=== PATIENT | female | born 1945 ===

== ENCOUNTER 2017-10-07 10:18 | Day surgery (SDC) | payer MEDICARE ==
[2017-10-04 16:05] VITALS: BMI 23.9
[2017-10-07] MEDS ORDERED: Midazolam 2 MG/2 ML VIAL ONE ×3 (12:02→16:42)
[2017-10-07] MEDS ORDERED: Verapamil 2 ML ONE ×2 (12:02→16:41)
[2017-10-07] MEDS ORDERED: Lidocaine 2% Inj (20ml) ONE ×2 (12:02→17:12)
[2017-10-07] MEDS ORDERED: Iodixanol 320 MG/ML 200 ML BOTTLE IV ONE (12:03)
[2017-10-07] MEDS ORDERED: Nitroglycerin 50mg in D5W 50 MG/250 ML BOTTLE IV ONE (12:03)
[2017-10-07 12:20] VITALS: RESP 18; O2SAT 100
[2017-10-07 12:33] LABS: BASO # 0.02 K/mm3 (0.0-2.0); BASO % 0.3 % (0.0-3.0); EOS # 0.3 (0.0-0.7); EOS % 3.4 % (1.5-5.0); GRAN # 4.78 (1.4-6.5); HEMOGLOBIN 14.7 g/dL (12.0-16.0); LYMPH # 2.2 (1.2-3.4); LYMPH % 28.3 % (22.0-35.0); MEAN CELL VOLUME 89.3 fl (80.0-105.0); MEAN CORPUSCULAR HEMOGLOBIN 30.2 pg (25.0-35.0); MEAN CORPUSCULAR HGB CONC 33.8 g/dl (31.0-37.0); MEAN PLATELET VOLUME 9.5 fl (7.0-11.0); MONO # 0.4 (0.1-0.6); RBC 4.87 10^6/uL (3.5-6.1); RED CELL DISTRIBUTION WIDTH 12.8 % (11.5-14.5); WHITE BLOOD COUNT 7.6 10^3/ul (4.5-11.0)
[2017-10-07 12:41] LABS: BLOOD UREA NITROGEN 16 mg/dL (7-21); CALCIUM 9.7 mg/dL (8.4-10.5); GFR AFRICAN-AMERICAN > 60; GFR NON-AFRICAN AMERICAN > 60; HDL CHOLESTEROL 41 mg/dL (29-60)
[2017-10-07 12:47] LABS: INR 1.03 (0.93-1.08); PARTIAL THROMBOPLASTIN TIME 29.4 Seconds (25.1-36.5); PROTHROMBIN TIME 11.8 SECONDS (9.4-12.5)
[2017-10-07 12:52] LABS: LDL CHOLESTEROL 97 mg/dL (0-129)
--- NOTE | 2017-10-07 15:12 | CARD ---
APPROVED REPORT EKG Measurement Heart [id number] MA 160P-4 [id number] <Conclusion> Electronic ventricular pacemaker: 100 % VДмитрий Matson
[2017-10-07] MEDS ORDERED: Adenosine 90 mg/30mL IV ONE (15:13)
[2017-10-07] MEDS ORDERED: Iohexol 350mgl/ml 50 ML ONE (17:29)
[2017-10-07] MEDS ORDERED: Iohexol 350 MG/100 ML VIAL ONE (17:47)
[2017-10-07] MEDS ORDERED: Bacitracin 500 Units/gm Oint Foilpak UD TOP ONE (17:52)
[2017-10-07 20:26] VITALS: TEMP 98.5
[2017-10-07 20:28] VITALS: BP 133/91; PULSE 92
--- NOTE | 2017-10-07 23:24 | CARDCATH ---
PROCEDURE DATE: 10/07/2017 INDICATIONS: Roxy Morgan is a 71-year-old female who was admitted to [facility] last month with an episode of chest discomfort, anxiety and was noted to be in high-grade AV block. Patient was subsequently transferred to [place] and underwent successful pacemaker replacement. A week prior to that presentation, she had come in with an episode of atypical chest pain, had mildly positive troponin and was subsequently discharged home with plan for outpatient evaluation. Soon discharge, she had episodes of recurrent chest pain and shortness of breath. Therefore, was brought to the wastewater analyst lab analyst for further evaluation and treatment. PROCEDURE PERFORMED: Left heart catheterization with selective left and right coronary angiogram via left radial approach. FFR of proximal diagonal at 0.91, FFR of mid LAD at 0.68 secondary to mid LAD myocardial bridge. TECHNIQUES OF PROCEDURE: After obtaining informed consent, patient was brought to the cardiac catheterization suite in post-absorptive and non-sedated state. Patient was prepped and draped in the usual sterile fashion. A 2% lidocaine was used for infiltration of anesthesia. Using modified Seldinger technique, a 6-[place] sheath was introduced into the left radial artery. Subsequently, over a J-wire, JL4 and JR4 diagnostic catheters were used to engage the left and right coronary systems. Angiograms were obtained in different orthogonal views. Subsequently, a pigtail catheter was advanced into the LV and LV gram was obtained. Hemodynamics were obtained and pullback gradients were noted. HEMODYNAMICS: Left ventricular end-diastolic pressure was 16 mmHg. There was no gradient noted upon the aortic valve pullback. There was no AI, no MR. Left ventricular ejection fraction estimated to be 60%. CORONARY ANATOMY: Left main, large-sized vessel, bifurcates into LAD and left circumflex coronary artery. Left circumflex coronary artery is a large-sized vessel, runs in the AV groove, gives off 2 small obtuse marginal branches. LAD large-sized vessel, gives off a diagonal branch, proximal 60% stenosis. LAD has a mid diffuse 55% myocardial bridge and gives off 2 small diagonal branches after the first diag. Right coronary artery has non-obstructive disease, right PDA has a proximal 55% stenosis. TECHNIQUES OF INTERVENTION: After reviewing the above angiographic findings, it was decided to further interrogate the diagonal and LAD lesions. FFR of the diagonal was done, which was physiologically nonsignificant at 0.91. FFR of the LAD myocardial bridge was done, which was physiologically significant at 0.68. 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 RECOMMENDATIONS: Patient is to be maximized on medical therapy. Keep the patient on aspirin, Plavix, statin, beta-blockers, ARBs. Further titration based on clinical response to therapy. Consider revascularization based on clinical symptoms. Reevaluate the patient in 3 to 6 months' time. Nikolai Dacosta MD
== END 2017-10-07 23:30 | disposition home or self-care (01) ==
LOC: CATH 10:18 → 2RNO 18:32 → CATH 23:30
PROVIDERS: ATTEND Internal Medicine Interventional Cardiology
DX: I25.10 Atherosclerotic heart disease of native coronary artery without angina pectoris (principal); I44.30 Unspecified atrioventricular block
CPT/HCPCS: 36415; 80048; 80061; 82948; 85025; 85175; 85610; 85730; 86850; 86900; 93005; 93458; 93571; 93572; 99152; 99153; C1769 ×3; C1887 ×4; C1894; J0153; J1644 ×2; J2250; J3010; J7040; Q9966; Q9967